=== PATIENT | male | born 1950 | race Caucasian/White ===

== ENCOUNTER 2017-08-21 09:45 | Emergency (ER) | payer MEDICARE, OTHER ==
[2017-08-21 12:03] LABS: BASOPHILS # (AUTO) 0.1 10^3/uL (0.0-0.1); BASOPHILS % (AUTO) 0.8 %; EOSINOPHILS # (AUTO) 0.4 10^3/uL (0.0-0.7); EOSINOPHILS % (AUTO) 4.3 %; HCT - HEMATOCRIT 43.6 % (42.0-52.0); HGB - HEMOGLOBIN 14.9 g/dL (14.0-18.0); LYMPHOCYTES # (AUTO) 1.5 10^3/uL (1.5-3.5); LYMPHOCYTES % (AUTO) 17.4 %; MEAN CORPUSCULAR HEMOGLOBIN 29.6 pg (27.0-31.0); MEAN CORPUSCULAR HGB CONC 34.1 g/dL (32.0-36.0); MEAN CORPUSCULAR VOLUME 86.7 fL (80.0-94.0); MONOCYTES # (AUTO) 0.6 10^3/uL (0.0-1.0); MONOCYTES % (AUTO) 6.6 %; NEUTROPHILS # (AUTO) 6.2 10^3/uL (1.5-6.6); NEUTROPHILS % (AUTO) 70.9 %; NUCLEATED RED BLOOD CELLS AUTO 0.1 /100WBC; RED BLOOD COUNT 5.03 10^6/uL (4.70-6.10); RED CELL DISTRIBUTION WIDTH 12.8 % (12.0-15.0); UNCORRECTED WHITE BLOOD COUNT 8.7 x10^3/uL; WHITE BLOOD COUNT 8.7 x10^3/uL (4.8-10.8)
[2017-08-21 12:16] LABS: ALBUMIN/GLOBULIN RATIO 1.3 (1.0-2.2); BILIRUBIN,TOTAL 0.5 mg/dL (0.2-1.0); CALCIUM 9.9 mg/dL (8.5-10.3); CREATININE 0.8 mg/dL (0.6-1.2); POTASSIUM 4.4 mmol/L (3.5-5.0); TOTAL PROTEIN 7.8 g/dL (6.7-8.2)
--- NOTE | 2017-08-21 12:54 | CT Preliminary Report ---
Exam: CT Head W/O IMPRESSION: 1. No bleeding or mass effect, no shift. 2. Small vessel disease posterior left periventricular white matter. [facility] SITE ID: [id number]
[2017-08-21] MEDS ORDERED: SODIUM CHLORIDE 0.9% 1,000 ML IV ONE (13:09)
--- NOTE | 2017-08-21 13:14 | CT Report ---
EXAM: CT HEAD EXAM DATE: 08/21/2017 12:12 PM. CLINICAL HISTORY: Headache, slurred speech. COMPARISON: None. TECHNIQUE: Multiaxial CT images were obtained from the foramen magnum to the vertex. IV contrast: Non e. Reformats: Coronal. In accordance with CT protocol optimization, one or more of the following dose reduction techniques w ere utilized for this exam: automated exposure control, adjustment of mA and/or KV based on patient s ize, or use of iterative reconstructive technique. FINDINGS: Parenchyma: No intraparenchymal hemorrhage. No evidence of mass, midline shift, or CT findings of inf arction. Carver-white differentiation is distinct. Extraaxial Spaces: Normal for age. No subdural or epidural collections identified. Ventricles: Normal in size and position. Sinuses: Imaged paranasal sinuses, orbits, and mastoids show no significant abnormality. Bones: No evidence of fracture or calvarial defect. Other: Small amount of slightly decreased attenuation seen adjacent to the left occipital horn. IMPRESSION: 1. No bleeding or mass effect, no shift. 2. Small vessel disease posterior left periventricular white matter. [facility] Referring Provider Line: [phone] SITE ID: [id number]
--- NOTE | 2017-08-21 13:26 | ED Physician Documentation ---
History of Present Illness - Stated complaint Stated Complaint: VISION PROBLEM - Chief complaint Chief Complaint: Neuro - History obtained from History obtained from: Patient, Family - History of Present Illness Timing: How many days ago (4) - Additonal information Additional information: The patient is a 66-year-old diabetic male who presents complaining of dizziness , visual disturbance and slurred speech. His symptoms started 4 days ago. The last 3 days his symptoms resolved within 30 minutes. However today he awoke with all these symptoms, and they have persisted. He describes his visual disturbance as double vision, and states he sees more clearly with his right eye. He describes his dizziness as a problem with his balance. He denies lightheadedness or spinning sensation. He reports a dull frontal headache. He reports mild nausea, without vomiting. He denies numbness or weakness in his extremities. He has no history of similar symptoms in the past. His past medical history is significant for diabetes for which he takes Metformin. He has history of hypertension for which he takes lisinopril. He denies any recent trauma, and takes no anticoagulant medication. Review of Systems Constitutional: denies: Fever Eyes: reports: Other (vague sense of diplopia) Ears: denies: Tinnitus/ringing Nose: denies: Congestion Throat: denies: Sore throat Cardiac: denies: Chest pain / pressure, Palpitations Respiratory: denies: Dyspnea, Cough GI: reports: Nausea (mild). denies: Abdominal Pain, Vomiting : denies: Dysuria Skin: denies: Rash Musculoskeletal: denies: Neck pain, Extremity pain, Extremity swelling Neurologic: reports: Difficulty speaking (Slurred speech.), Headache (mild frontal). denies: Focal weakness, Numbness, Altered mental status, Head injury PD PAST MEDICAL HISTORY - Past Medical History Past Medical History: Yes Cardiovascular: Hypertension Endocrine/Autoimmune: Type 2 diabetes Psych: Depression - Past Surgical History Past Surgical History: Yes - Present Medications Home Medications: Ambulatory Orders Medication Instructions Recorded Confirmed Lisinopril 40 mg PO DAILY 08/21/17 08/21/17 [place] 150 mg PO DAILY 08/21/17 08/21/17 metFORMIN [Glucophage] 500 mg PO DAILY 08/21/17 08/21/17 - Allergies Allergies/Adverse Reactions: Allergies Allergy/AdvReac Type Severity Reaction Status Date / Time Hxprqzj-Egz-Yth Reductase Allergy Unknown Verified 08/21/17 09:56 Inhibitor - Living Situation Living Situation: reports: With family Living Arrangement: reports: At home - Social History Does the pt smoke?: No Smoking Status: Never smoker Does the pt drink ETOH?: No Does the pt have substance abuse?: No PD ED PE NORMAL - Vitals Vital signs reviewed: Yes (Mild hypertension) - General General: Alert and oriented X 3, Well developed/nourished - HEENT HEENT: Atraumatic, PERRL, EOMI, Ears normal, Pharynx benign, Other (No visual field deficits detected.) - Neck Neck: Supple, no meningeal sign, No adenopathy, No JVD - Cardiac Cardiac: RRR, No murmur - Respiratory Respiratory: No respiratory distress, Clear bilaterally - Abdomen Abdomen: Soft, Non tender - Back Back: No CVA TTP - Derm Derm: No rash - Extremities Extremities: No edema, No calf tenderness / cord - Neuro Neuro: Alert and oriented X 3, No motor deficit, No sensory deficit, Other ( Slurred speech; intact finger to nose; mild unsteadiness with ambulation.) Results - Vitals Vitals: Vital Signs - 24 hr 08/21/17 08/21/17 08/21/17 21:24 22:34 22:56 Temperature Heart Rate 77 80 71 Respiratory 16 12 14 Rate Blood Pressure 157/81 H 162/80 H 159/91 H O2 Saturation 97 96 96 08/21/17 08/22/17 23:15 00:06 Temperature 36.3 C L Heart Rate 73 77 Respiratory 16 20 Rate Blood Pressure 144/77 H 122/97 H O2 Saturation 96 96 Oxygen O2 Source Room air - EKG (time done) 18:47 Rate: Rate (enter#) (71) Rhythm: NSR [place]: LAD (borderline) Intervals: Normal IA QRS: Normal Ischemia: Normal ST segments Computer interpretation: Agree with computer - Labs Labs: Laboratory Tests 08/21/17 08/21/17 08/21/17 10:04 11:46 11:46 WBC 8.7 RBC 5.03 Hgb 14.9 Hct 43.6 MCV 86.7 MCH 29.6 MCHC 34.1 RDW 12.8 Plt Count 256 MPV 8.0 Neut # 6.2 Lymph # 1.5 [place] # 0.6 Eos # 0.4 Baso # 0.1 Absolute Nucleated RBC 0.01 Nucleated RBC % 0.1 Sodium 137 Potassium 4.4 Chloride 103 Carbon Dioxide 25 Anion Gap 9.0 BUN 23 H Creatinine 0.8 Estimated GFR (MDRD) 96 Glucose 128 H POC Whole Bld Glucose 148 H Calcium 9.9 Total Bilirubin 0.5 AST 15 ALT 19 Alkaline Phosphatase 60 Total Protein 7.8 Albumin 4.4 Globulin 3.4 Albumin/Globulin Ratio 1.3 Lipase 36 - Rads (name of study) Head CT Radiology: Prelim report reviewed, EMP read contemporaneously, See rad report ( 1. No bleeding or mass-effect, no shift. 2. Small vessel disease posterior left periventricular white matter.) MRI Brain w/ and w/o Radiology: Prelim report reviewed, See rad report (Multiple acute posterior circulation infarcts, 2 small infarcts measuring 3-6 mm in the right thalamus, as well as several cerebellar infarcts, largest measuring up to approximately 6 mm. No associated hemorrhage or mass-effect.) CT angio head and neck Radiology: Prelim report reviewed, See rad report (Left vertebral artery is the dominant supply to the basilar artery, with a 7 mm length of greater than 90% stenosis, in the anterior medullary cistern. Appearance is suggestive of mural thrombus. Notably the basilar tip is hypoplastic, concordant with bilateral near posterior cerebral arteries. Findings are concordant with geographic location of the strokes.) PD MEDICAL DECISION MAKING - ED course Complexity details: reviewed results, re-evaluated patient, considered differential, d/w patient, d/w family, d/w small business consultant ED course: The patient's presentation is significant for multiple acute small cerebellar infarcts. CT scan of his head was not diagnostic, but MRI of the brain with and without contrast revealed the abnormal findings. Electrocardiogram reveals normal sinus rhythm. Lab results are unremarkable. Treatment in the emergency department included administration of normal saline IV, acetaminophen 1000 mg po for headache, and 4 baby aspirin orally. I discussed his condition with the neurologist at [facility], and he recommends CT angiogram of the head and neck. This was ordered, and the results are pending. I also discussed his condition with the hospitalist, who asks that we await recommendation from the neurologist before considering admission to [facility]. At change of shift I am signing out his care to Dr. Fermin who will follow up on the results of the CT angiogram, the neurologist's recommendation, and provide appropriate disposition. Departure - Departure Disposition: 02 Transfer Acute Care Hosp Clinical Impression: Cerebellar stroke, acute, History of diabetes mellitus, Internuclear ophthalmoplegia of right eye Condition: Stable Discharge Date/Time: 08/22/17 00:13
[2017-08-21] MEDS ORDERED: ACETAMINOPHEN 325 MG TABLET PO STA (15:07)
[2017-08-21] MEDS ORDERED: ACETAMINOPHEN 500 MG TABLET PO STA (15:10)
[2017-08-21] MEDS ORDERED: ACETAMINOPHEN 500 MG TABLET PO ONE (15:14)
[2017-08-21] MEDS ORDERED: GADOBUTROL 10 MMOL/10 ML VIAL ONE (15:56)
[2017-08-21] MEDS ORDERED: GADOBUTROL 10 MMOL/10 ML VIAL IVP ONE (16:38)
--- NOTE | 2017-08-21 17:55 | MRI Preliminary Report ---
Exam: MRI Brain W/WO Impression: Multiple acute posterior circulation infarcts, too small infarcts measuring 3-6 mm in the right thala mus, as well as several cerebellar infarcts, largest measuring up to approximately 6 mm. No associate d hemorrhage or mass effect. Acute infarct is a critical result, we are paging the referring at time of dictation, 1751, 7. SITE ID: [id number]
--- NOTE | 2017-08-21 17:58 | MRI Report ---
EXAM: MRI BRAIN WITH AND WITHOUT CONTRAST COMPARISON: CT head, 08/21/2017. CLINICAL HISTORY: Slurred speech, diplopia TECHNIQUE: Multiplanar multisequence imaging is performed through the head with and without 9 cc Gadavist. FINDINGS: Degenerative imaging shows multiple acute infarcts in the posterior circulation, including 3 [address] infar ct in the right thalamus (505, 13), as well as a 6 mm infarct in the anterior right thalamus (505, 14 ), and multiple cerebellar infarcts, largest in the left cerebellum measuring approximately 6 mm (505 , 8). No anterior circulation acute infarcts are. Gradient sequence shows small focus of diminished signal in the right cerebellum, presumed to reflect old hemorrhage. T2 FLAIR imaging shows multifocal white matter T2 elongation, concordant with small vessel angiopathy and prior lacunar infarcts. Elevated FLAIR signal and at least the largest left cerebellar infarct suggestively 6 hours of age. No posterior fossa masses. Vascular flow voids are unremarkable. No abnormal elevated T1 signal in the brain parenchyma. Limited evaluation of the dural venous sinuses and arterial structures is unremarkable. No abnormal enhancement on postcontrast spin echo imaging. High-resolution T2 imaging shows No posterior fossa masses. No masses related to either seventh or ei ghth nerve complex. Pituitary fossa, clivus and foramen magnum are unremarkable. Impression: Multiple acute posterior circulation infarcts, too small infarcts measuring 3-6 mm in the right thala mus, as well as several cerebellar infarcts, largest measuring up to approximately 6 mm. No associate d hemorrhage or mass effect. Acute infarct is a critical result, we are paging the referring at time of dictation, 1751, 7. The critical result notification system was initiated by Dr. Vinicius Iyer at 17:52 hrs on 08/21/17. The above critical findings were discussed with PATIENT'S Primary Nurse by Dr. Vinicius Iyer at 17:5 4 hrs on 08/21/17. Referring Provider Line: [phone] SITE ID: [id number]
[2017-08-21] MEDS ORDERED: ASPIRIN CHEW 81 MG TABLET PO STA (18:25)
[2017-08-21] MEDS ORDERED: ASPIRIN 325 MG TABLET PO ONE (18:33)
[2017-08-21] MEDS ORDERED: ASPIRIN CHEW 81 MG TABLET ONE (18:34)
[2017-08-21] MEDS ORDERED: IOPAMIDOL-300 100 ML VIAL ONE (19:24)
[2017-08-21] MEDS ORDERED: IOPAMIDOL-300 100 ML VIAL IVP ONE (19:51)
--- NOTE | 2017-08-21 20:30 | CT Report ---
EXAM: CTA HEAD COMPARISON: CTA neck, 08/21/2017. CLINICAL HISTORY: Posterior circulation infarcts TECHNIQUE: Axial CT images were obtained through the head during arterial phase after intravenous Isovue-300. Postcontrast head CT is performed. 3 dimensional MIP reconstructions are created from axial data. Stenosis is measured by NASCET type criteria. In accordance with CT protocol optimization, one or more of the following dose reduction techniques w ere utilized for this exam: automated exposure control, adjustment of mA and/or KV based on patient s ize, or use of iterative reconstructive technique. FINDINGS: Postcontrast head CT: No abnormal parenchymal enhancement. No masses. No enhancement corresponding to the expected area of infarcts, suggesting less than 24 hours of age. Intervals are prominent, concordant of volume loss. No lytic or blastic bone lesions are seen. Visualized orbits, paranasal sinuses and mastoids are unremarkable. CTA head: Right internal carotid artery: No evident stenosis or aneurysm is identified through the terminus. There is near right INTEGRATION AIDE. Ri ght M1, M2 and visualized distal segments are unremarkable. Right A1, A2 and visualized distal segmen ts are unremarkable. Left internal artery: No evident stenosis or aneurysm is identified through the terminus. Left INTEGRATION AIDE is near . Left A1, A2 and visualized distal segments are unremarkable. Left M1, M2 and visualized distal segments are un remarkable. Posterior circulation: After talar artery is dominant. Right vertebral artery ends in a PICA, makes minimal contribution to the basilar. Left vertebral artery is the predominant supply to the basilar artery. There is an extradural left PI CA origin. Flow is demonstrated in the left PICA. The Left vertebral artery shows high-grade, greater than 90% stenosis (2, 47), in the anterior medullary cistern. Superior to reflect mural thrombus, I have no comparison studies with which to assess interval change. Basilar artery is irregular, without focal hemodynamically significant stenosis. Basilar tip is hypop lastic, concordant with bilateral near posterior cerebral arteries. Superior cerebellar arterie s show flow. Impression: Postcontrast head CT: No abnormal parenchymal enhancement. CTA: Left vertebral artery is the dominant supply to the basilar artery, with a 7 mm length of greater bridger n 90% stenosis, in the anterior medullary cistern. Appearance is suggestive of mural thrombus, I have no comparison studies with which to assess interval change. Notably, the basilar tip is hypoplastic, concordant with bilateral near posterior cerebral lorie [place]. Findings are concordant with geographic location of the strokes. Referring Provider Line: [phone] SITE ID: [id number]
--- NOTE | 2017-08-21 20:59 | CT Preliminary Report ---
Exam: CT Neck Angio Impression: Multilevel cervical spondylosis. No hemodynamically significant extracranial arterial stenosis or dissection identified. Notably, the origin of the Left vertebral artery is near the origin of the left subclavian artery, and is not adeq uately visualized secondary to motion artifact. SITE ID: [id number]
--- NOTE | 2017-08-21 21:01 | CT Report ---
EXAM: CTA NECK COMPARISON: CTA head, 08/21/2017. CLINICAL HISTORY: Posterior circulation infarct TECHNIQUE: Axial CT images were obtained through the neck during arterial phase after intravenous Isovue-300. 3 dimensional MIP reconstructions are created from axial data. Stenosis is measured by NASCET type criteria. In accordance with CT protocol optimization, one or more of the following dose reduction techniques w ere utilized for this exam: automated exposure control, adjustment of mA and/or KV based on patient s ize, or use of iterative reconstructive technique. FINDINGS: Evaluation of cervical alignment shows no listheses. Spondylosis is most significant at C5-C6. Prevertebral soft tissues are unremarkable. Evaluation of the intracranial arterial structures is deferred to CTA head performed today. No retropharyngeal fluid. No cervical adenopathy or masses. Visualized right upper chest shows no pulmonary nodules or masses. No pneumothorax. Visualized left u pper chest shows no pulmonary nodules or masses. No pneumothorax. Visualized upper mediastinum is unremarkable. Arterial structures: Right carotid artery: Right common carotid artery originates normally from the brachiocephalic, it is unremarkable to the b ifurcation. Right internal carotid artery is without hemodynamically significant stenosis or dissecti on or also to distal normal vessel to the skull base. Left carotid artery: Left common carotid artery originates normally from the aortic arch, shows No evident stenosis or dis section of the bifurcation. Left internal carotid artery shows no hemodynamically significant stenosi s or dissection to skull base. Posterior circulation: Right vertebral artery terminates normally from the right subclavian artery, shows no evidence of ryan nosis or dissection to the dural ring. Left vertebral artery originates normally from the left subclavian artery, the Left vertebral artery is dominant, shows No evident stenosis or dissection to the dural ring. Proximal left vertebral arter y is not well-visualized, artery originates near the origin of the left subclavian artery. Impression: Multilevel cervical spondylosis. No hemodynamically significant extracranial arterial stenosis or dissection identified. Notably, the origin of the Left vertebral artery is near the origin of the left subclavian artery, and is not adeq uately visualized secondary to motion artifact. Referring Provider Line: [phone] SITE ID: [id number]
--- NOTE | 2017-08-21 21:49 | ED Physician Documentation ---
ED Addendum - Addendum Addendum: 08/21/17 21:[address]za[address]. Sebastian (neurology at [facility]) reviewed CTA and recommends aspirin and transfer. No heparin at this time. Pt with R sided gaze defect, doesn't cross midline. Transferred to [facility]. Departure - Departure Disposition: 02 Transfer Acute Care Hosp Clinical Impression: Cerebellar stroke, acute, History of diabetes mellitus, Internuclear ophthalmoplegia of right eye Condition: Stable
[2017-08-22 00:13] VITALS: BP 122/97
== END 2017-08-22 00:13 | disposition short-term general hospital (02) ==
LOC: ED 09:45
DX: I63.8 Other cerebral infarction (principal); R47.81 Slurred speech; E11.9 Type 2 diabetes mellitus without complications; Z79.84 Long term (current) use of oral hypoglycemic drugs; H51.21 Internuclear ophthalmoplegia, right eye; I10 Essential (primary) hypertension
CPT/HCPCS: 36415; 70450; 70496; 70498; 70553; 80053; 83690; 85025; 93005; 96360; 99285; A9270; A9585; Q9967

== ENCOUNTER 2017-08-22 00:06 | Outpatient (CLI) | payer MEDICARE, OTHER | END 2017-08-22 00:07 | disposition short-term general hospital (02) | LOC: EMS 00:06 | PROVIDERS: ATTEND Surgery | DX: I63.9 Cerebral infarction, unspecified (principal) | CPT/HCPCS: A0425; A0426 ==

== ENCOUNTER 2018-07-16 07:09 | Outpatient (CLI) | payer MEDICARE, OTHER ==
[2018-07-16 10:25] LABS: HB2 TOTAL 15.9 g/dL; HEMOGLOBIN A1C 0.75 g/dL; HEMOGLOBIN A1C % 6.5 % (4.6-6.2)
[2018-07-16 10:26] LABS: ALBUMIN 4.5 g/dL (3.2-5.5); ALBUMIN/GLOBULIN RATIO 1.4 (1.0-2.2); ALKALINE PHOSPHATASE 46 IU/L (42-121); ALT ALANINE AMINOTRANSFERASE 22 IU/L (10-60); AST ASPARTATE AMINOTRANSFERASE 17 IU/L (10-42); BILIRUBIN,TOTAL 0.9 mg/dL (0.2-1.0); BUN - BLOOD UREA NITROGEN 25 mg/dL (6-20); CALCIUM 9.3 mg/dL (8.5-10.3); CARBON DIOXIDE - CO2 27 mmol/L (21-32); CHLORIDE 97 mmol/L (101-111); CHOL/HDL RATIO 6.8 (<5.0); CHOLESTEROL 271 mg/dL; CREATININE 0.9 mg/dL (0.6-1.2); GFR - MDRD 84 (>89); GLUCOSE 131 mg/dL (70-100); HDL CHOLESTEROL 40 mg/dL; LDL CHOLESTEROL,CALCULATED 165 mg/dL; LDL/HDL RATIO 4.1 (<3.6); SODIUM 132 mmol/L (135-145); TOTAL PROTEIN 7.7 g/dL (6.7-8.2); VLDL CHOLESTEROL 66 mg/dL
[2018-07-16 17:45] LABS: LITHIUM 0.39 mmol/L
== END 2018-07-16 07:10 | disposition home or self-care (01) ==
LOC: LAB.F 07:09
PROVIDERS: ATTEND Internal Medicine
DX: E11.9 Type 2 diabetes mellitus without complications (principal); F32.9 Major depressive disorder, single episode, unspecified
CPT/HCPCS: 36415; 80048; 80053; 80061; 80178; 82043; 83036; 83721; 84443

== ENCOUNTER 2020-09-03 07:10 | Outpatient (CLI) | payer MEDICARE, OTHER ==
[2020-09-03 15:52] LABS: LITHIUM 0.63 mmol/L
[2020-09-03 15:54] LABS: ALBUMIN 4.4 g/dL (3.2-5.5); ALBUMIN/GLOBULIN RATIO 1.5 (1.0-2.2); ALKALINE PHOSPHATASE 40 IU/L (42-121); ALT ALANINE AMINOTRANSFERASE 20 IU/L (10-60); AST ASPARTATE AMINOTRANSFERASE 17 IU/L (10-42); BILIRUBIN,TOTAL 0.9 mg/dL (0.2-1.0); BUN - BLOOD UREA NITROGEN 22 mg/dL (6-20); CALCIUM 9.8 mg/dL (8.5-10.3); CARBON DIOXIDE - CO2 27 mmol/L (21-32); CHLORIDE 101 mmol/L (101-111); CHOL/HDL RATIO 5.8 (<5.0); CHOLESTEROL 278 mg/dL; GLUCOSE 116 mg/dL (70-100); HDL CHOLESTEROL 48 mg/dL; LDL CHOLESTEROL,CALCULATED 194 mg/dL; SODIUM 140 mmol/L (135-145); TOTAL PROTEIN 7.3 g/dL (6.7-8.2); VLDL CHOLESTEROL 36 mg/dL
[2020-09-03 19:59] LABS: HEMOGLOBIN A1c% 5.7 % (4.27-6.07)
== END 2020-09-03 07:11 | disposition home or self-care (01) ==
LOC: LAB.S 07:10
PROVIDERS: ATTEND Internal Medicine
DX: F32.9 Major depressive disorder, single episode, unspecified (principal); E11.9 Type 2 diabetes mellitus without complications
CPT/HCPCS: 36415; 80053; 80061; 80178; 83036; 83721

== ENCOUNTER 2021-05-03 14:40 | Outpatient (CLI) | payer MEDICARE, OTHER | END 2021-05-03 14:41 | disposition home or self-care (01) | LOC: COV 14:40 | PROVIDERS: ATTEND Family Medicine | DX: Z20.822 Contact with and (suspected) exposure to COVID-19 (principal) ==

== ENCOUNTER 2021-06-24 15:16 | Outpatient (CLI) | payer MEDICARE, OTHER | END 2021-06-24 15:17 | disposition critical access hospital (66) | LOC: EMS 15:16 | DX: H53.8 Other visual disturbances (principal) | CPT/HCPCS: A0425; A0427 ==

== ENCOUNTER 2021-07-12 07:37 | Outpatient (CLI) | payer MEDICARE, OTHER ==
[2021-07-12 14:38] LABS: BASOPHILS # (AUTO) 0.1 10^3/uL (0.0-0.1); BASOPHILS % (AUTO) 0.8 %; EOSINOPHILS # (AUTO) 0.4 10^3/uL (0.0-0.7); EOSINOPHILS % (AUTO) 5.6 %; HGB - HEMOGLOBIN 14.1 g/dL (14.0-18.0); LYMPHOCYTES # (AUTO) 1.7 10^3/uL (1.5-3.5); LYMPHOCYTES % (AUTO) 22.8 %; MEAN CORPUSCULAR HEMOGLOBIN 29.4 pg (27.0-31.0); MEAN CORPUSCULAR HGB CONC 31.3 g/dL (32.0-36.0); MEAN CORPUSCULAR VOLUME 93.8 fL (80.0-94.0); MEAN PLATELET VOLUME 10.3 fL (7.4-11.4); MONOCYTES # (AUTO) 0.5 10^3/uL (0.0-1.0); NEUTROPHILS # (AUTO) 4.7 10^3/uL (1.5-6.6); NEUTROPHILS % (AUTO) 63.4 %; PLT - PLATELET COUNT 271 10^3/uL (130-450); RED CELL DISTRIBUTION WIDTH 13.2 % (12.0-15.0); WHITE BLOOD COUNT 7.5 x10^3/uL (4.8-10.8)
[2021-07-12 15:00] LABS: ALBUMIN 4.1 g/dL (3.2-5.5); ALBUMIN/GLOBULIN RATIO 1.1 (1.0-2.2); BILIRUBIN,TOTAL 1.1 mg/dL (0.2-1.0); CALCIUM 9.3 mg/dL (8.5-10.3); CREATININE 0.9 mg/dL (0.6-1.2); POTASSIUM 4.3 mmol/L (3.5-5.0); TOTAL PROTEIN 7.8 g/dL (6.7-8.2)
[2021-07-12 21:19] LABS: ESTIMATED AVERAGE GLUCOSE 134 mg/dL (70-100); HEMOGLOBIN A1c% 6.3 % (4.27-6.07)
== END 2021-07-12 07:38 | disposition home or self-care (01) ==
LOC: LAB.S 07:37
PROVIDERS: ATTEND Internal Medicine
DX: I10 Essential (primary) hypertension (principal); E11.9 Type 2 diabetes mellitus without complications; Z12.5 Encounter for screening for malignant neoplasm of prostate
CPT/HCPCS: 36415; 80053; 83036; 85025; G0103; 84153

== ENCOUNTER 2022-01-10 07:07 | Outpatient (CLI) | payer MEDICARE, OTHER ==
[2022-01-10 15:37] LABS: BASOPHILS # (AUTO) 0.1 10^3/uL (0.0-0.1); BASOPHILS % (AUTO) 0.9 %; EOSINOPHILS # (AUTO) 0.4 10^3/uL (0.0-0.7); EOSINOPHILS % (AUTO) 6.6 %; HCT - HEMATOCRIT 46.2 % (42.0-52.0); HGB - HEMOGLOBIN 14.8 g/dL (14.0-18.0); LYMPHOCYTES # (AUTO) 1.8 10^3/uL (1.5-3.5); LYMPHOCYTES % (AUTO) 27.9 %; MEAN CORPUSCULAR HEMOGLOBIN 29.5 pg (27.0-31.0); MEAN CORPUSCULAR VOLUME 92.2 fL (80.0-94.0); MEAN PLATELET VOLUME 10.7 fL (7.4-11.4); MONOCYTES # (AUTO) 0.5 10^3/uL (0.0-1.0); MONOCYTES % (AUTO) 7.4 %; NEUTROPHILS # (AUTO) 3.7 10^3/uL (1.5-6.6); PLT - PLATELET COUNT 245 10^3/uL (130-450); RED BLOOD COUNT 5.01 10^6/uL (4.70-6.10); RED CELL DISTRIBUTION WIDTH 12.4 % (12.0-15.0); WHITE BLOOD COUNT 6.4 x10^3/uL (4.8-10.8)
[2022-01-10 16:00] LABS: ALBUMIN 4.5 g/dL (3.2-5.5); ALBUMIN/GLOBULIN RATIO 1.5 (1.0-2.2); BILIRUBIN,TOTAL 0.6 mg/dL (0.2-1.0); CALCIUM 9.2 mg/dL (8.5-10.3); POTASSIUM 4.3 mmol/L (3.5-5.0); TOTAL PROTEIN 7.5 g/dL (6.7-8.2)
[2022-01-10 16:57] LABS: ESTIMATED AVERAGE GLUCOSE 123 mg/dL (70-100); HEMOGLOBIN A1c% 5.9 % (4.27-6.07)
[2022-01-10 20:06] LABS: LITHIUM 0.31 mmol/L
== END 2022-01-10 07:08 | disposition home or self-care (01) ==
LOC: LAB.S 07:07
PROVIDERS: ATTEND Internal Medicine
DX: I10 Essential (primary) hypertension (principal); E11.9 Type 2 diabetes mellitus without complications; F32.9 Major depressive disorder, single episode, unspecified; Z79.899 Other long term (current) drug therapy
CPT/HCPCS: 36415; 80053; 80178; 83036; 85025

== ENCOUNTER 2022-01-16 07:06 | Outpatient (CLI) | payer MEDICARE, OTHER ==
[2022-01-16 16:59] LABS: RHEUMATOID FACTOR NEGATIVE (Negative)
[2022-01-20 22:27] LABS: ANA SCREEN NEGATIVE (NEGATIVE)
== END 2022-01-16 07:07 | disposition home or self-care (01) ==
LOC: LAB.S 07:06
PROVIDERS: ATTEND Internal Medicine
DX: M25.50 Pain in unspecified joint (principal)
CPT/HCPCS: 36415; 85651; 86038; 86140; 86430